=== PATIENT | male | born 1945 | race Caucasian/White ===

== ENCOUNTER 2018-05-28 23:40 | Inpatient (IN) ==
[2018-05-29] MEDS ORDERED: Ondansetron ODT 4 MG TAB.RAPDIS SL PRN (01:35)
[2018-05-29] MEDS ORDERED: GuaiFENesin Liq 200 MG/10 ML UDC PO PRN (01:41)
[2018-05-29] MEDS ORDERED: Acetaminophen 325 MG TABLET PO PRN (01:43)
[2018-05-29] MEDS ORDERED: Dextrose Gel 15 GM/37.5 ML TUBE PO PRN ×2 (01:55)
[2018-05-29] MEDS ORDERED: D5% in Water 1,000 ML IVC PRN (01:55)
[2018-05-29] MEDS ORDERED: *HR* Dextrose 50 % in Water (Syg) 50 ML SYRINGE IVP PRN (01:55)
[2018-05-29] MEDS ORDERED: cloNIDine HCl 0.1 MG TABLET PO PRN (02:04)
[2018-05-29 05:24] LABS: Basophils % 0.4 %; Eosinophils # 0.2 K/mcL (0.0-0.6); Hematocrit 40.5 % (37.5-50.1); Hemoglobin 13.9 g/dL (12.9-16.9); Immature Granulocytes % 0.5 % (0-4); Lymphocytes # 1.4 K/mcL (0.6-4.6); Lymphocytes % 25.1 %; Mean Corpuscular HGB Conc 34.3 g/dL (31.6-35.5); Mean Corpuscular Hemoglobin 30.3 pg (28.0-33.3); Mean Corpuscular Volume 88.2 fL (83.0-100.0); Mean Platelet Volume 11.1 fL (9.4-12.4); Monocytes # 0.5 K/mcL (0.0-1.3); Monocytes % 8.4 %; Neutrophils # 3.5 K/mcL (1.6-8.9); Platelet Count 131 K/mcL (140-400); Red Blood Count 4.59 M/mcL (4.19-5.50); Red Cell Distribution Width 12.6 % (11.5-14.5); Segmented Neutrophils % 61.6 %
[2018-05-29 05:41] LABS: Alanine Aminotransferase 12 Units/L (7-52); Albumin 3.7 g/dL (3.5-5.7); Albumin/Globulin Ratio 1.3 (1.1-2.2); Alkaline Phosphatase 55 Units/L (34-104); Aspartate Amino Transferase 11 Units/L (13-39); BUN/Creatinine Ratio 20 (6-26); Bilirubin,Total 0.6 mg/dL (0.3-1.0); Blood Urea Nitrogen 14 mg/dL (8-23); Calcium 8.7 mg/dL (8.6-10.3); Carbon Dioxide 25 mEq/L (23-29); Chloride 103 mEq/L (98-107); Globulin 2.9 g/dL (2.4-3.5); Glucose 180 mg/dL (70-105); Osmolality,Calculated 285 (280-300); Potassium 3.9 mEq/L (3.5-5.1); Sodium 135 mEq/L (136-145); Total Protein 6.6 g/dL (6.4-8.9); eGFR For Non-African Americans > 60 (> 60)
[2018-05-29] MEDS: *HR* Heparin 5,000 UNIT/ML VIAL SQ SCH ×2 (06:07→18:44)
[2018-05-29] MEDS: *HR* GlipiZIDE 5 MG TABLET PO SCH (08:46)
[2018-05-29] MEDS: Insulin LISPRO 300 UNITS/3 ML VIAL SQ SCH ×4 (08:46→21:19)
[2018-05-29] MEDS: Sennosides 8.6 MG TABLET PO SCH (08:46)
[2018-05-29] MEDS: *HR* Metformin 500 MG TABLET PO SCH ×2 (08:46→18:43)
[2018-05-29] MEDS: Aspirin 81 MG TAB.CHEW PO SCH (08:47)
[2018-05-29] MEDS: Nicotine 21 MG PATCH.TD24 TD SCH (08:47)
--- NOTE | 2018-05-29 10:54 | Internal Med History&Physical ---
Addendum entered and electronically signed by Brendan Willoughby MD 05/29/18 12:28: I have personally performed a face to face evaluation on this patient. I have r eviewed and agree with the care plan. History and Exam by me shows: Patient had a stroke on 05/24/2018. He was seen at [facility] and life flighted to [facility]. There, they put him on blood thinners and gave him medicines for blood pressure and he has done remarkably well. He still has a problem with minimal visual loss at the left as well as unsteadiness and risk of falling. He is transferred here for therapy and to regain his function. He has a event monitor placement that has thus far been free of arrhythmia, to his knowledge. Past medical history was reviewed. He has known hyperlipidemia. He also has been diabetic and on oral medications, only. He denies treatment for hy pertension although they gave him IV Apresoline and metipranolol at [facility]. About 3 years ago, he had prostate cancer and had 40 treatments of radiation without sequela, thereafter. Surgeries include left cataract extraction. He has a 50+ pack year smoking history and smoked until the day of his stroke. He is wearing a nicotine patch for same. We discussed smoking cessation and that he needs to quit. He wears upper full plate dentures. He is suffering for about 3 years from erectile dysfunction. He denies bowel or bladder dysfunction, otherwise. He denies melena or hematochezia. Has taken metformin 850 mg 3 times a day for several years. He states that this frequently gives him diarrhea. Patient has no complaint of chest discomfort, dyspnea, orthopnea, breathing pro blems, palpitations, nausea or vomiting, constipation or diarrhea, other changes in bowel habits, heartburn, difficulty with urination, kidney problems or kidney stones, fevers chills or sweats, rash or itching, seizures, headache or lightheadedness, heat or cold intolerance, blood problems or anemia, or other new complaints, except as mentioned above. Review of systems is otherwise negative. Examination: (Except as mentioned above): General: In no apparent distress, alert and oriented 3. Head: Atraumatic and normocephalic. Eyes: Extraocular muscles are intact, pupils equal round and reactive to light and accommodation. Sclerae anicteric. To confrontation, he admits that there is slight deficit at left upper quadrant but this is poorly characterized. Ears: External ears are normal to inspection and hearing is grossly normal. Nose: Patent without lesion noted. Mouth: No intraoral lesions seen. He has a full upper plate denture as well as lower mandibular teeth which are mostly present but a few central are missing. Neck: Supple with trachea midline. There is no thyromegaly or adenopathy and carotids are 2+ without bruit heard. Respiratory: No use of accessory muscles. Lungs are clear throughout. Normal airflow. Cardiovascular: Regular rate and rhythm without murmur appreciated. Abdomen: Bowel sounds are normal. No hepatosplenomegaly masses or tenderness. Patient is examined upright in chair and this also limits exam. Extremities: No cyanosis clubbing or edema. Neurological: A and O 3. Cranial nerves II through XII are intact. No focal deficits and no abnormal movements or postures. He has excellent dorsiflexion. Left upper extremity grasp is symmetrical with the right. Skin: Warm and non-diaphoretic with no lesions noted. Breasts, pelvic and rectal: Not examined. He will be assessed by therapy for stability and training and his safety precautions. Because he has elevated blood pressure, will begin low-dose losartan and follow. He will also be treated with when necessary clonidine. So that he has maximum benefit from Glucophage, this will be changed to 1000 mg twice a day. He will be treated with sliding scale insulin, as well. Original Note: Date of Encounter: 05/29/18 Time of Encounter: 10:50 Assessment and Plan (1) CVA (cerebral vascular accident) Current visit: Yes Status: Acute PT, OT and ST to eval and treat. Will follow progress. Follow up with neuro logist as scheduled. No neurological deficits at this time. Continue simvastatin. MRI showed a left cerebellar stroke with medulla extension. 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 Continue to monitor fingerstick blood sugar. Last hemoglobin A-1 C7 .8. Qualifiers: Diabetes mellitus diamond sander insulin use: without diamond sander use Diabetes mellitus complication status: without complication Qualified Code(s): E11.9 - Type 2 diabetes mellitus without complications (3) Hyperlipemia Current visit: Yes Status: Acute Continue simvastatin. Qualifiers: Hyperlipidemia type: unspecified Qualified Code(s): E78.5 - Hyperlipidemia, unspecified Internal Medicine - H&P: HPI Admitted From: Hospital to Hospital Transfer Plans for Post Hospital Care: Home History of present illness: Mr. Andrew is a 72 year old male admitted to rehab status post CVA. States he was watching TV on to when he had a sudden onset of dizziness and leaning to his left side. He was admitted to [facility] with an MRI showing a left cerebellar stroke with left medulla extension. hgb A1C 7.8 past medical history includes diabetes type II and hyperlipidemia is a one pack per day smoker. Patient denies any new neurological symptoms, denies change in vision, denies fever, chills, nausea vomiting or diarrhea. Denies shortness of breath or chest pain. 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 - Social History Smoking Status: Current every day smoker Packs per day: 1 Smokeless Tobacco Status: No Alcohol use: none Drug use: none - Family History Father Living Status: Age at : 90 Cause of : Stroke Mother Living Status: Internal Medicine - H&P: Meds glipiZIDE [Glucotrol] 5 mg PO 0800 07/04/16 [History] metFORMIN [Glucophage] 850 mg PO TID 07/04/16 [History] Simvastatin [Zocor] 20 mg PO DAILY 07/17/17 [History] Allergy/AdvReac Type Severity Reaction Status Date / Time No Known Allergies Allergy Verified 07/17/17 14:58 All Systems PM: A 10-system review of systems was performed and is negative for pertinent find ings except as documented above in the HPI. - Constitutional Constitutional: no chills, no fever(s), no night sweats - EENT Eyes: no change in vision, no discharge, no pain, no photophobia Ears: no ear discharge, no ear pain, no tinnitus Nose, mouth and throat: no dysphagia, no nasal discharge, no neck pain, no sore throat - Cardiovascular Cardiovascular ROS IM: no chest pain, no diaphoresis, no dyspnea, no lightheadedness, no palpitations, no syncope - Respiratory Respiratory: no cough, no dyspnea, no wheezing, no excessive phlegm production - Gastrointestinal Gastrointestinal: no abdominal pain, no diarrhea, no hematemesis, no hematochezia, no melena, no nausea, no vomiting - Musculoskeletal Musculoskeletal ROS IM: no numbness, no tingling - Integumentary Integumentary IM: no rash, no unusual bruising - Neurological Neurological ROS: no confusion, no convulsions, no focal weakness, no numbness, no tingling, no tremor(s) - Hematologic/Lymphatic Hematologic/Lymphatic: no easy bruising - Constitutional Vitals: Temp Pulse Resp BP Pulse Ox 98.0 F 62 16 151/81 95 05/29/18 06:55 05/29/18 06:55 05/29/18 06:55 05/29/18 06:55 05/29/18 06:55 General appearance: Present: cooperative, A&O X 3, pleasant, no acute distress, answers questions appropriately - Head Head exam: Present: atraumatic, normocephalic - Eye Eye exam: Present: PERRL, conjuntiva pink, sclera anicteric Pupils: Present: PERRL - Neck Neck exam general surgery: Present: supple, trachea midline. Absent: lymphadenopathy - Respiratory Respiratory exam: Present: CTAB. Absent: accessory muscle use, rales, rhonchi, wheezes - Cardiovascular Cardiovascular exam: Present: RRR, +S1, +S2. Absent: diastolic murmur, gallop, rubs, systolic murmur - GI/Abdominal GI/Abdominal exam: Present: normal bowel sounds, soft, no peritoneal signs. Absent: distended, tenderness - Extremities Exam Extremities exam: Present: warm, radial pulses palpable and symmetrical. Absent: calf tenderness, cyanotic, pedal edema Additional comments: Strength, 5\5, with all for extremities. Has a slightly into the left when sitt ing upright - Neurological Exam Neurological exam: Present: CN II-XII intact, oriented X3, no focal deficits. Absent: pronater drift, facial droop, speech deficit - Skin Skin exam: Present: dry, intact Internal Med - H&P Results - Labs CBC & Chem 7: 05/29/18 05:11 05/29/18 05:11 Labs: Short CBC 05/29/18 Range/Units 05:11 WBC 5.7 (4.3-11.1) K/mcL Hgb 13.9 (12.9-16.9) g/dL Hct 40.5 (37.5-50.1) % Plt Count 131 L (140-400) K/mcL Neutrophils # 3.5 (1.6-8.9) K/mcL BMP 05/29/18 05:11 Sodium 135 L Potassium 3.9 Chloride 103 Carbon Dioxide 25 BUN 14 Creatinine 0.70 Glucose 180 H Calcium 8.7 Liver Function 05/29/18 Range/Units 05:11 Total Bilirubin 0.6 (0.3-1.0) mg/dL AST 11 L (13-39) Units/L ALT 12 (7-52) Units/L Alkaline Phosphatase 55 (34-104) Units/L Albumin 3.7 (3.5-5.7) g/dL
[2018-05-29] MEDS: Gabapentin 300 MG CAPSULE PO SCH (21:22)
[2018-05-30] MEDS: *HR* Heparin 5,000 UNIT/ML VIAL SQ SCH ×2 (05:45→17:18)
[2018-05-30] MEDS: Nicotine 21 MG PATCH.TD24 TD SCH (09:56)
[2018-05-30] MEDS: Aspirin 81 MG TAB.CHEW PO SCH (09:57)
[2018-05-30] MEDS: *HR* GlipiZIDE 5 MG TABLET PO SCH (09:57)
[2018-05-30] MEDS: *HR* Metformin 500 MG TABLET PO SCH ×2 (09:57→17:18)
[2018-05-30] MEDS: Sennosides 8.6 MG TABLET PO SCH (09:57)
[2018-05-30] MEDS: Insulin LISPRO 300 UNITS/3 ML VIAL SQ SCH ×4 (09:57→20:19)
--- NOTE | 2018-05-30 14:02 | Internal Med Progress Note ---
Date of Encounter: 05/30/18 Time of Encounter: 11:15 - Assessment and plan (1) CVA (cerebral vascular accident) Current Visit: Yes Status: Acute Assessment and plan: We will continue therapies and support as planned. 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 Qualifiers: Diabetes mellitus terminal operations supervisor insulin use: without shelter use Diabetes mellitus complication status: without complication Qualified Code(s): E11.9 - Type 2 diabetes mellitus without complications (3) Hyperlipemia Current Visit: Yes Status: Acute Assessment and plan: On statin medication for same. Qualifiers: Hyperlipidemia type: unspecified Qualified Code(s): E78.5 - Hyperlipidemia, unspecified (4) Tobacco abuse Current Visit: Yes Status: Acute Assessment and plan: On nicotine patch for same. - Subjective Interval history: Patient is doing well. He has no complaints. He thinks that his unsteadiness was improved during therapy, this morning. Patient has no complaint of chest discomfort, dyspnea, orthopnea, palpitations, nausea or vomiting, constipation or diarrhea, other changes in bowel habits, difficulty with urination, rash or itching, or other new complaints, except as mentioned above. Review of systems is otherwise negative. I discussed management of her care with nursing staff. - Constitutional Vitals: Temp Pulse Resp BP Pulse Ox 98.3 F 67 16 107/71 97 05/30/18 08:20 05/30/18 08:20 05/30/18 08:20 05/30/18 08:20 05/30/18 08:20 Exam: Examination: (Except as mentioned above): General: In no apparent distress. Alert and oriented 3. Nondiaphoretic. Head: Atraumatic and normocephalic. Respiratory: No use of accessory muscles. Lungs are clear throughout. Normal airflow. Cardiovascular: Regular rate and rhythm without murmur appreciated. Abdomen: Bowel sounds are normal. No hepatosplenomegaly mass or tenderness appreciated. Obese and therefore difficult to palpate deeply. Extremities: No cyanosis clubbing or edema. Skin: Warm and non-diaphoretic with no new lesions noted. Strength remains good and there are no gross neurologic abnormalities. Internal Medicine: Result - Labs CBC & Chem 7: 05/29/18 05:11 05/29/18 05:11 Consult Discharge Plan - Plan [facility]errals: [facility] [Primary Care Provider[facility] -
[2018-05-30] MEDS: Gabapentin 300 MG CAPSULE PO SCH (20:18)
[2018-05-30] MEDS: Mag Hydrox/Al Hydrox/Simeth 30 ML UDC PO PRN (22:41)
[2018-05-31] MEDS: *HR* Heparin 5,000 UNIT/ML VIAL SQ SCH ×2 (05:24→17:01)
[2018-05-31] MEDS: Insulin LISPRO 300 UNITS/3 ML VIAL SQ SCH ×4 (07:17→20:18)
[2018-05-31] MEDS: *HR* Metformin 500 MG TABLET PO SCH ×2 (08:01→17:01)
[2018-05-31] MEDS: Aspirin 81 MG TAB.CHEW PO SCH (08:01)
[2018-05-31] MEDS: *HR* GlipiZIDE 5 MG TABLET PO SCH (08:01)
[2018-05-31] MEDS: Nicotine 21 MG PATCH.TD24 TD SCH (08:02)
[2018-05-31] MEDS: Sennosides 8.6 MG TABLET PO SCH (08:02)
[2018-05-31] MEDS: Mag Hydrox/Al Hydrox/Simeth 30 ML UDC PO PRN (10:52)
--- NOTE | 2018-05-31 15:11 | Internal Med Progress Note ---
Date of Encounter: 05/31/18 Time of Encounter: 15:09 - Assessment and plan (1) CVA (cerebral vascular accident) Current Visit: Yes Status: Acute Assessment and plan: We will continue therapies and support as planned. 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 Qualifiers: Diabetes mellitus intermediate insulin use: without nut sifter use Diabetes mellitus complication status: without complication Qualified Code(s): E11.9 - Type 2 diabetes mellitus without complications (3) Hyperlipemia Current Visit: Yes Status: Acute Assessment and plan: No changes in we will continue statin. Qualifiers: Hyperlipidemia type: unspecified Qualified Code(s): E78.5 - Hyperlipidemia, unspecified (4) Tobacco abuse Current Visit: Yes Status: Acute Assessment and plan: On nicotine patch. - Subjective Interval history: Patient has significant dyspepsia. He states this is better with Maalox. We discussed the use of a PPI. He denies other problems. Patient has no complaint of chest discomfort, dyspnea, orthopnea, palpitations, nausea or vomiting, constipation or diarrhea, other changes in bowel habits, difficulty with urination, rash or itching, or other new complaints, except as mentioned above. Review of systems is otherwise negative. I discussed management of her care with nursing staff. - Constitutional Vitals: Temp Pulse Resp BP Pulse Ox 98.1 F 65 16 116/70 96 05/31/18 06:56 05/31/18 06:56 05/31/18 06:56 05/31/18 06:56 05/31/18 06:56 Exam: Examination: (Except as mentioned above): General: In no apparent distress. Alert and oriented 3. Nondiaphoretic. Head: Atraumatic and normocephalic. Respiratory: No use of accessory muscles. Lungs are clear throughout. Normal airflow. Cardiovascular: Regular rate and rhythm without murmur appreciated. Abdomen: Bowel sounds are normal. No hepatosplenomegaly mass or tenderness appreciated. Obese and therefore difficult to palpate deeply. Extremities: No cyanosis clubbing or edema. Skin: Warm and non-diaphoretic with no new lesions noted. Internal Medicine: Result - Labs CBC & Chem 7: 05/29/18 05:11 05/29/18 05:11 Consult Discharge Plan - Plan [facility]errals: [facility] [Primary Care Provider] -
[2018-05-31] MEDS: Gabapentin 300 MG CAPSULE PO SCH (22:04)
[2018-06-01] MEDS: *HR* Heparin 5,000 UNIT/ML VIAL SQ SCH ×2 (05:49→18:16)
[2018-06-01 05:50] LABS: Basophils % 0.3 %; Eosinophils # 0.2 K/mcL (0.0-0.6); Eosinophils % 3.2 %; Hematocrit 42.7 % (37.5-50.1); Hemoglobin 14.3 g/dL (12.9-16.9); Immature Granulocytes % 0.6 % (0-4); Lymphocytes # 1.6 K/mcL (0.6-4.6); Lymphocytes % 25.3 %; Mean Corpuscular HGB Conc 33.5 g/dL (31.6-35.5); Mean Corpuscular Volume 89.5 fL (83.0-100.0); Mean Platelet Volume 11.1 fL (9.4-12.4); Monocytes # 0.6 K/mcL (0.0-1.3); Monocytes % 9.8 %; Neutrophils # 3.8 K/mcL (1.6-8.9); Platelet Count 150 K/mcL (140-400); Red Blood Count 4.77 M/mcL (4.19-5.50); Red Cell Distribution Width 12.6 % (11.5-14.5); Segmented Neutrophils % 60.8 %
[2018-06-01 06:07] LABS: Alanine Aminotransferase 14 Units/L (7-52); Albumin 3.9 g/dL (3.5-5.7); Albumin/Globulin Ratio 1.4 (1.1-2.2); Alkaline Phosphatase 56 Units/L (34-104); Aspartate Amino Transferase 13 Units/L (13-39); BUN/Creatinine Ratio 17 (6-26); Bilirubin,Total 0.8 mg/dL (0.3-1.0); Blood Urea Nitrogen 16 mg/dL (8-23); Carbon Dioxide 29 mEq/L (23-29); Chloride 100 mEq/L (98-107); Globulin 2.7 g/dL (2.4-3.5); Glucose 136 mg/dL (70-105); Osmolality,Calculated 279 (280-300); Potassium 4.3 mEq/L (3.5-5.1); Sodium 133 mEq/L (136-145); Total Protein 6.6 g/dL (6.4-8.9); eGFR For Non-African Americans > 60 (> 60)
[2018-06-01] MEDS: Insulin LISPRO 300 UNITS/3 ML VIAL SQ SCH ×4 (07:30→20:31)
[2018-06-01] MEDS: *HR* GlipiZIDE 5 MG TABLET PO SCH (07:31)
[2018-06-01] MEDS: Aspirin 81 MG TAB.CHEW PO SCH (07:48)
[2018-06-01] MEDS: Sennosides 8.6 MG TABLET PO SCH (07:48)
[2018-06-01] MEDS: Nicotine 21 MG PATCH.TD24 TD SCH (07:49)
[2018-06-01] MEDS: *HR* Metformin 500 MG TABLET PO SCH ×2 (07:49→17:14)
--- NOTE | 2018-06-01 10:11 | Internal Med Progress Note ---
Addendum entered and electronically signed by Brendan Willoughby MD 06/01/18 12:13: I have personally performed a face to face evaluation on this patient. I have r eviewed and agree with the care plan. History and Exam by me shows: Patient is not having any nausea this morning. On further questioning, he says that he felt like he had multiple cups yesterday and the need to burp and then threw up. He does not really have much nausea. I told him that we would hope that the PPI would help his symptoms and he should let us know. He denies any abdominal pain or change in bowel habits and he is still unsteady with gait but otherwise feels normal. Discussed care with other providers and/or nursing. Patient has no complaint of chest discomfort, dyspnea, orthopnea, palpitations, nausea or vomiting, constipation or diarrhea, other changes in bowel habits, difficulty with urination, rash or itching, or other new complaints, except as mentioned above. Review of systems is otherwise negative. Examination: (Except as mentioned above): General: In no apparent distress. Alert and oriented 3. Nondiaphoretic. Head: Atraumatic and normocephalic. Respiratory: No use of accessory muscles. Lungs are clear throughout. Normal airflow. Cardiovascular: Regular rate and rhythm without murmur appreciated. Abdomen: Bowel sounds are normal. No hepatosplenomegaly mass or tenderness appreciated. Obese and therefore difficult to palpate deeply. Extremities: No cyanosis clubbing or edema. Skin: Warm and non-diaphoretic with no new lesions noted. Original Note: Date of Encounter: 06/01/18 Time of Encounter: 10:09 - Assessment and plan (1) CVA (cerebral vascular accident) Current Visit: Yes Status: Inactive Assessment and plan: Continue PT, OT and ST. Will monitor for improvement. No new neurological deficits. Follow up with neurologist as scheduled. 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 Monitor fingerstick blood sugar. Qualifiers: Diabetes mellitus custodial insulin use: without custodial use Diabetes mellitus complication status: without complication Qualified Code(s): E11.9 - Type 2 diabetes mellitus without complications (3) Hyperlipemia Current Visit: Yes Status: Acute Assessment and plan: Continue simvastatin. Qualifiers: Hyperlipidemia type: unspecified Qualified Code(s): E78.5 - Hyperlipidemia, unspecified - Time Spent With Patient less than 15 minutes - Subjective Interval history: Patient participating well with therapy. Ambulating with Walker. States bowels are moving as normal. Maintaining appetite and hydration. Denies any new neurological deficits. Continues to lean to the left. - Constitutional Vitals: Temp Pulse Resp BP Pulse Ox 98.1 F 60 16 112/70 97 06/01/18 06:25 06/01/18 06:25 06/01/18 06:25 06/01/18 06:25 06/01/18 06:25 General appearance: Present: cooperative, A&O X 3, pleasant, no acute distress, answers questions appropriately - Head Head exam: Present: atraumatic, normocephalic - Eye Eye exam: Present: PERRL, conjuntiva pink, sclera anicteric Pupils: Present: PERRL - Neck Neck exam general surgery: Present: supple, trachea midline. Absent: lymphadenopathy - Respiratory Respiratory exam: Present: CTAB. Absent: accessory muscle use, rales, rhonchi, wheezes - Cardiovascular Cardiovascular exam: Present: RRR, +S1, +S2. Absent: diastolic murmur, gallop, rubs, systolic murmur - GI/Abdominal GI/Abdominal exam: Present: normal bowel sounds, soft, no peritoneal signs. Absent: distended, tenderness - Extremities Exam Extremities exam: Present: warm, radial pulses palpable and symmetrical. Absent: calf tenderness, cyanotic, pedal edema - Neurological Exam Neurological exam: Present: CN II-XII intact, oriented X3, no focal deficits. Absent: pronater drift, facial droop, speech deficit - Skin Skin exam: Present: dry, intact Internal Medicine: Result - Labs CBC & Chem 7: 06/01/18 05:40 06/01/18 05:40 Labs: Short CBC 06/01/18 Range/Units 05:40 WBC 6.3 (4.3-11.1) K/mcL Hgb 14.3 (12.9-16.9) g/dL Hct 42.7 (37.5-50.1) % Plt Count 150 (140-400) K/mcL Neutrophils # 3.8 (1.6-8.9) K/mcL BMP 06/01/18 05:40 Sodium 133 L Potassium 4.3 Chloride 100 Carbon Dioxide 29 BUN 16 Creatinine 0.92 Glucose 136 H Calcium 9.0 Liver Function 06/01/18 Range/Units 05:40 Total Bilirubin 0.8 (0.3-1.0) mg/dL AST 13 (13-39) Units/L ALT 14 (7-52) Units/L Alkaline Phosphatase 56 (34-104) Units/L Albumin 3.9 (3.5-5.7) g/dL Consult Discharge Plan - Plan [facility]errals: [facility] [Primary Care Provider] -
[2018-06-01] MEDS: Gabapentin 300 MG CAPSULE PO SCH (20:30)
[2018-06-02] MEDS: *HR* Heparin 5,000 UNIT/ML VIAL SQ SCH ×2 (05:32→17:40)
[2018-06-02] MEDS: Insulin LISPRO 300 UNITS/3 ML VIAL SQ SCH ×4 (07:32→22:22)
[2018-06-02] MEDS: *HR* Metformin 500 MG TABLET PO SCH ×2 (09:04→17:06)
[2018-06-02] MEDS: Aspirin 81 MG TAB.CHEW PO SCH (09:05)
[2018-06-02] MEDS: Nicotine 21 MG PATCH.TD24 TD SCH (09:05)
[2018-06-02] MEDS: Sennosides 8.6 MG TABLET PO SCH (09:05)
[2018-06-02] MEDS: *HR* GlipiZIDE 5 MG TABLET PO SCH (09:05)
--- NOTE | 2018-06-02 10:07 | Internal Med Progress Note ---
Addendum entered and electronically signed by Brendan Willoughby MD 06/02/18 13:01: I have personally performed a face to face evaluation on this patient. I have r eviewed and agree with the care plan. History and Exam by me shows: Patient states that he is feeling well. He occasionally has hiccups but no other nausea or feeling the urge to vomit. He is moving his bowels and has no problems otherwise. He feels like his unsteadiness is improving. Discussed care with other providers and/or nursing. Patient has no complaint of chest discomfort, dyspnea, orthopnea, palpitations, nausea or vomiting, constipation or diarrhea, other changes in bowel habits, difficulty with urination, rash or itching, or other new complaints, except as mentioned above. Review of systems is otherwise negative. Examination: (Except as mentioned above): General: In no apparent distress. Alert and oriented 3. Nondiaphoretic. Head: Atraumatic and normocephalic. Respiratory: No use of accessory muscles. Lungs are clear throughout. Normal airflow. Cardiovascular: Regular rate and rhythm without murmur appreciated. Abdomen: Bowel sounds are normal. No hepatosplenomegaly mass or tenderness appreciated. Obese and therefore difficult to palpate deeply. Patient is examined upright at bedside and this also limits exam. Extremities: No cyanosis clubbing or edema. Skin: Warm and non-diaphoretic with no new lesions noted. Original Note: Date of Encounter: 06/02/18 Time of Encounter: 10:06 - Assessment and plan (1) CVA (cerebral vascular accident) Current Visit: Yes Status: Inactive Assessment and plan: Continue PT, OT and ST. Will monitor for improvement. No new neurological deficits. Follow up with neurologist as scheduled. 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 Monitor fingerstick blood sugar. Qualifiers: Diabetes mellitus retirement insulin use: without health promoter use Diabetes mellitus complication status: without complication Qualified Code(s): E11.9 - Type 2 diabetes mellitus without complications (3) Hyperlipemia Current Visit: Yes Status: Acute Assessment and plan: Continue simvastatin. Qualifiers: Hyperlipidemia type: unspecified Qualified Code(s): E78.5 - Hyperlipidemia, unspecified - Time Spent With Patient less than 15 minutes - Subjective Interval history: Patient participating well with therapy. Ambulating with Walker with men assist to transfer. Patient continues to have impulsive and quick movements.. States bowels are moving as normal. Maintaining appetite and hydration. Denies any new neurological deficits. Continues to lean to the left. - Constitutional Vitals: Temp Pulse Resp BP Pulse Ox 97.9 F 55 16 110/69 97 06/02/18 06:43 06/02/18 06:43 06/02/18 06:43 06/02/18 06:43 06/02/18 06:43 General appearance: Present: cooperative, A&O X 3, pleasant, no acute distress, answers questions appropriately - Head Head exam: Present: atraumatic, normocephalic - Eye Eye exam: Present: PERRL, conjuntiva pink, sclera anicteric Pupils: Present: PERRL - Neck Neck exam general surgery: Present: supple, trachea midline. Absent: lymphadenopathy - Respiratory Respiratory exam: Present: CTAB. Absent: accessory muscle use, rales, rhonchi, wheezes - Cardiovascular Cardiovascular exam: Present: RRR, +S1, +S2. Absent: diastolic murmur, gallop, rubs, systolic murmur - GI/Abdominal GI/Abdominal exam: Present: normal bowel sounds, soft, no peritoneal signs. Absent: distended, tenderness - Extremities Exam Extremities exam: Present: warm, radial pulses palpable and symmetrical. Absent: calf tenderness, cyanotic, pedal edema - Neurological Exam Neurological exam: Present: CN II-XII intact, oriented X3, no focal deficits. Absent: pronater drift, facial droop, speech deficit - Skin Skin exam: Present: dry, intact Internal Medicine: Result - Labs CBC & Chem 7: 06/01/18 05:40 06/01/18 05:40 Consult Discharge Plan - Plan [facility]errals: [facility] [Primary Care Provider] -
[2018-06-02] MEDS: Gabapentin 300 MG CAPSULE PO SCH (22:24)
[2018-06-03] MEDS: *HR* Heparin 5,000 UNIT/ML VIAL SQ SCH ×2 (06:41→16:46)
[2018-06-03] MEDS: Insulin LISPRO 300 UNITS/3 ML VIAL SQ SCH ×4 (07:33→20:42)
[2018-06-03] MEDS: Nicotine 21 MG PATCH.TD24 TD SCH (08:48)
[2018-06-03] MEDS: Aspirin 81 MG TAB.CHEW PO SCH (08:49)
[2018-06-03] MEDS: *HR* Metformin 500 MG TABLET PO SCH ×2 (08:49→16:46)
[2018-06-03] MEDS: *HR* GlipiZIDE 5 MG TABLET PO SCH (08:50)
[2018-06-03] MEDS: Sennosides 8.6 MG TABLET PO SCH (08:50)
--- NOTE | 2018-06-03 11:50 | Internal Med Progress Note ---
Addendum entered and electronically signed by Brendan Willoughby MD 06/03/18 13:42: I have personally performed a face to face evaluation on this patient. I have r eviewed and agree with the care plan. History and Exam by me shows: Patient is doing well without complaint. He still notes that he has persistent unsteadiness. He is frustrated because he cannot do certain tasks with therapy Discussed care with other providers and/or nursing. Patient has no complaint of chest discomfort, dyspnea, orthopnea, palpitations, nausea or vomiting, constipation or diarrhea, other changes in bowel habits, difficulty with urination, rash or itching, or other new complaints, except as mentioned above. Review of systems is otherwise negative. Examination: (Except as mentioned above): General: In no apparent distress. Alert and oriented 3. Nondiaphoretic. Head: Atraumatic and normocephalic. Respiratory: No use of accessory muscles. Lungs are clear throughout. Normal airflow. Cardiovascular: Regular rate and rhythm without murmur appreciated. Abdomen: Bowel sounds are normal. No hepatosplenomegaly mass or tenderness appreciated. Patient is examined upright in chair and this also limits exam. Extremities: No cyanosis clubbing or edema. Skin: Warm and non-diaphoretic with no new lesions noted. Original Note: Date of Encounter: 06/03/18 Time of Encounter: 11:49 - Assessment and plan (1) CVA (cerebral vascular accident) Current Visit: Yes Status: Acute Assessment and plan: Patient appears relaxed. No acute neurological deficits noted on exam. Patient originally had slight left hemiparesis but on exam appeared to have equal str ength to all extremities. Patient dissipated physical therapy and progressing well. We will continue with current plan of care Qualifiers: CVA mechanism: unspecified Qualified Code(s): I63.9 - Cerebral infarction, unspecified (2) Diabetes type 2, controlled Current Visit: Yes Status: Acute Assessment and plan: No acute issues. Patient's glucose been well-controlled with most readings less than 170. We will continue on current medication regimen. Qualifiers: Diabetes mellitus brickmason contractor insulin use: without brickmason contractor use Diabetes mellitus complication status: without complication Qualified Code(s): E11.9 - Type 2 diabetes mellitus without complications - Time Spent With Patient less than 15 minutes - Subjective Interval history: Patient appears relaxed and currently denies any discomforts or dyspnea. Denies any acute neurological deficits and states that he feels that his strength has improved to his left ext. - Constitutional Vitals: Temp Pulse Resp BP Pulse Ox 98.6 F 61 16 121/62 97 06/03/18 06:00 06/03/18 06:00 06/03/18 06:00 06/03/18 06:00 06/03/18 06:00 General appearance: Present: cooperative, A&O X 3, pleasant, no acute distress, answers questions appropriately - Head Head exam: Present: atraumatic, normocephalic - Eye Eye exam: Present: PERRL, conjuntiva pink, sclera anicteric Pupils: Present: PERRL - Neck Neck exam general surgery: Present: supple, trachea midline. Absent: lymphadenopathy - Respiratory Respiratory exam: Present: CTAB. Absent: accessory muscle use, rales, rhonchi, wheezes - Cardiovascular Cardiovascular exam: Present: RRR, +S1, +S2. Absent: diastolic murmur, gallop, rubs, systolic murmur - GI/Abdominal GI/Abdominal exam: Present: normal bowel sounds, soft, no peritoneal signs. Absent: distended, tenderness - Extremities Exam Extremities exam: Present: warm, radial pulses palpable and symmetrical. Absent: calf tenderness, cyanotic, pedal edema - Neurological Exam Neurological exam: Present: CN II-XII intact, oriented X3, no focal deficits. Absent: pronater drift, facial droop, speech deficit - Skin Skin exam: Present: dry, intact Internal Medicine: Result - Labs CBC & Chem 7: 06/01/18 05:40 06/01/18 05:40 Consult Discharge Plan - Plan [facility] [Primary Care Provider] -
--- NOTE | 2018-06-03 14:30 | Psychological Evaluation ---
Date of Encounter: 06/03/18 Time of Encounter: 09:00 History of Present Illness History of present illness: Mr. Andrew is a 72 year old male. Patient had a stroke on 05/24/2018. He was seen at [facility] and life flighted to [facility]. There, they put him on blood thinners and gave him medicines for blood pressure and he has done remarkably well. He still has a problem with minimal visual loss at the left as well as unsteadiness and risk of falling. He is transferred here for therapy and to regain his function. Past Medical History - Psychiatric History Psychiatric history: Reports: no psych history Additional Psychiatric History: Denies SI Home Medications and Allergies glipiZIDE [Glucotrol] 5 mg PO 0800 07/04/16 [History] metFORMIN [Glucophage] 850 mg PO TID 07/04/16 [History] Simvastatin [Zocor] 20 mg PO DAILY 07/17/17 [History] Allergy/AdvReac Type Severity Reaction Status Date / Time No Known Allergies Allergy Verified 07/17/17 14:58 Social History - Social History Social History: 35 years to second . 2 adult children and 2 step children. - 4 years [employer]. works 40 hours /week [employer]. Goal is to return to work. Highest education 12 years. 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 manages finances. - Tobacco Use Smoking Status: Current every day smoker - Alcohol Use Alcohol Use: none - Drug Use Drug Use: none Cognitive/Emotional Assessment - Cognitive Ability Abstract Thinking Ability: No Deficits Noted Attention Span Ability: Capable of Focused Attention, Capable of Sustained Attention Language Function Ability: No Deficits Noted Verbal Communication Ability: Conversational Style Level of Alertness: Alert Memory Description: Recent Intact, Remote Intact Orientation: Person, Place, Time Ability to Follow Directions: Good Speech Pattern: Normal rate Thought Process: Logical Calculations: Able to spell WORLD backw Immediate Recall: Recalls 3 objects/words - Emotional Status Mood Description: Depressed Affect Description: Constricted Coping Ability: Verbalizes positive coping skills Assessment & Plan - Diagnosis (1) Depressive disorder due to another medical condition with depressive features (2) CVA (cerebral vascular accident) Qualifiers: CVA mechanism: unspecified Qualified Code(s): I63.9 - Cerebral infarction, unspecified - Prognosis Prognosis: Good Procedures - Participants Therapy Participant: Patient - Session Time Session Start Time: 09:00 Session Stop Time: 09:30
[2018-06-03] MEDS: Gabapentin 300 MG CAPSULE PO SCH (20:27)
[2018-06-04] MEDS: *HR* Heparin 5,000 UNIT/ML VIAL SQ SCH ×2 (05:58→17:16)
[2018-06-04] MEDS: Insulin LISPRO 300 UNITS/3 ML VIAL SQ SCH ×4 (08:48→20:52)
[2018-06-04] MEDS: *HR* Metformin 500 MG TABLET PO SCH ×2 (08:49→17:15)
[2018-06-04] MEDS: Nicotine 21 MG PATCH.TD24 TD SCH (08:49)
[2018-06-04] MEDS: *HR* GlipiZIDE 5 MG TABLET PO SCH (08:50)
[2018-06-04] MEDS: Aspirin 81 MG TAB.CHEW PO SCH (08:50)
[2018-06-04] MEDS: Sennosides 8.6 MG TABLET PO SCH (08:55)
--- NOTE | 2018-06-04 14:43 | Internal Med Progress Note ---
Date of Encounter: 06/04/18 Time of Encounter: 13:15 - Assessment and plan (1) CVA (cerebral vascular accident) Current Visit: Yes Status: Inactive Assessment and plan: We will continue therapies as planned. Discharge is to be determined. 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 Qualifiers: Diabetes mellitus half-way insulin use: without intermediate school teacher use Diabetes m ellitus complication status: without complication Qualified Code(s): E11.9 - Type 2 diabetes mellitus without complications (3) Hyperlipemia Current Visit: Yes Status: Acute Assessment and plan: We will continue his current regimen. Qualifiers: Hyperlipidemia type: unspecified Qualified Code(s): E78.5 - Hyperlipidemia, unspecified (4) Tobacco abuse Current Visit: Yes Status: Acute Assessment and plan: He seems to be doing well but we will need to encourage him to stop smoking upon discharge. - Subjective Interval history: Patient is without complaint. He has no dyspepsia or feeling like he needs to have hiccups which make him throw up. Otherwise, no acute problems and states that his unsteadiness is getting better with therapy. Patient has no complaint of chest discomfort, dyspnea, orthopnea, palpitations, nausea or vomiting, constipation or diarrhea, other changes in bowel habits, difficulty with urination, rash or itching, or other new complaints, except as mentioned above. Review of systems is otherwise negative. I discussed management of her care with nursing staff. - Constitutional Vitals: Temp Pulse Resp BP Pulse Ox 98.4 F 62 18 117/71 97 06/04/18 08:35 06/04/18 08:35 06/04/18 08:35 06/04/18 08:35 06/04/18 08:35 Exam: Examination: (Except as mentioned above): General: In no apparent distress. Alert and oriented 3. Nondiaphoretic. Head: Atraumatic and normocephalic. Respiratory: No use of accessory muscles. Lungs are clear throughout. Normal airflow. Cardiovascular: Regular rate and rhythm without murmur appreciated. Abdomen: Bowel sounds are normal. No hepatosplenomegaly mass or tenderness appreciated. Extremities: No cyanosis clubbing or edema. Skin: Warm and non-diaphoretic with no new lesions noted. Internal Medicine: Result - Labs CBC & Chem 7: 06/01/18 05:40 06/01/18 05:40 Consult Discharge Plan - Plan [facility]errals: [facility] [Primary Care Provider] -
[2018-06-04] MEDS: Gabapentin 300 MG CAPSULE PO SCH (20:52)
[2018-06-05] MEDS: *HR* Heparin 5,000 UNIT/ML VIAL SQ SCH ×2 (05:02→17:05)
[2018-06-05] MEDS: Insulin LISPRO 300 UNITS/3 ML VIAL SQ SCH ×4 (08:10→20:09)
[2018-06-05] MEDS: Sennosides 8.6 MG TABLET PO SCH (08:11)
[2018-06-05] MEDS: *HR* Metformin 500 MG TABLET PO SCH ×2 (08:11→17:04)
[2018-06-05] MEDS: Nicotine 21 MG PATCH.TD24 TD SCH (08:11)
[2018-06-05] MEDS: Aspirin 81 MG TAB.CHEW PO SCH (08:11)
[2018-06-05] MEDS: *HR* GlipiZIDE 5 MG TABLET PO SCH (08:11)
--- NOTE | 2018-06-05 10:08 | Internal Med Progress Note ---
Date of Encounter: 06/05/18 Time of Encounter: 10:06 - Assessment and plan (1) CVA (cerebral vascular accident) Current Visit: Yes Status: Acute Assessment and plan: Patient appears relaxed. No acute neurological deficits noted on exam. No focal deficits noted on exam. Patient participating in physical therapy and progressing well. We will continue with current plan of care Qualifiers: CVA mechanism: unspecified Qualified Code(s): I63.9 - Cerebral infarction, unspecified (2) Diabetes type 2, controlled Current Visit: Yes Status: Acute Assessment and plan: No acute issues. Patient's glucose been well-controlled with most readings less than 170. We will continue on current medication regimen. Qualifiers: Diabetes mellitus termination clerk insulin use: without alf use Diabetes mellitus complication status: without complication Qualified Code(s): E11.9 - Type 2 diabetes mellitus without complications - Time Spent With Patient less than 15 minutes - Subjective Interval history: Patient appears relaxed and currently denies any discomforts or dyspnea. Denies any acute neurological deficits and states that he feels that his strength has improved to his left ext. - Constitutional Vitals: Temp Pulse Resp BP Pulse Ox 98.5 F 58 18 118/73 100 06/05/18 07:28 06/05/18 07:28 06/05/18 07:28 06/05/18 07:28 06/05/18 07:28 General appearance: Present: cooperative, A&O X 3, pleasant, no acute distress, answers questions appropriately - Head Head exam: Present: atraumatic, normocephalic - Eye Eye exam: Present: PERRL, conjuntiva pink, sclera anicteric Pupils: Present: PERRL - Neck Neck exam general surgery: Present: supple, trachea midline. Absent: lymphadenopathy - Respiratory Respiratory exam: Present: CTAB. Absent: accessory muscle use, rales, rhonchi, wheezes - Cardiovascular Cardiovascular exam: Present: RRR, +S1, +S2. Absent: diastolic murmur, gallop, rubs, systolic murmur - GI/Abdominal GI/Abdominal exam: Present: normal bowel sounds, soft, no peritoneal signs. Absent: distended, tenderness - Extremities Exam Extremities exam: Present: warm, radial pulses palpable and symmetrical. Absent: calf tenderness, cyanotic, pedal edema - Neurological Exam Neurological exam: Present: CN II-XII intact, oriented X3, no focal deficits. Absent: pronater drift, facial droop, speech deficit - Skin Skin exam: Present: dry, intact Internal Medicine: Result - Labs CBC & Chem 7: 06/01/18 05:40 06/01/18 05:40 Consult Discharge Plan - Plan [facility]errals: [facility] [Primary Care Provider] -
[2018-06-05] MEDS: Gabapentin 300 MG CAPSULE PO SCH (20:12)
[2018-06-06] MEDS: *HR* Heparin 5,000 UNIT/ML VIAL SQ SCH ×2 (05:02→17:45)
[2018-06-06] MEDS: Insulin LISPRO 300 UNITS/3 ML VIAL SQ SCH ×4 (08:51→20:55)
[2018-06-06] MEDS: Sennosides 8.6 MG TABLET PO SCH (08:53)
[2018-06-06] MEDS: *HR* GlipiZIDE 5 MG TABLET PO SCH (08:53)
[2018-06-06] MEDS: Aspirin 81 MG TAB.CHEW PO SCH (08:54)
[2018-06-06] MEDS: Nicotine 21 MG PATCH.TD24 TD SCH (08:54)
[2018-06-06] MEDS: *HR* Metformin 500 MG TABLET PO SCH ×2 (08:54→17:34)
--- NOTE | 2018-06-06 16:33 | Internal Med Progress Note ---
Date of Encounter: 06/06/18 Time of Encounter: 14:30 - Subjective Interval history: Assessment and Plan (1) CVA (cerebral vascular accident) Current visit: Yes Status: Acute Pt had acute onset stroke 05/24/18 while at home. IT was Cerebellar stroke. (left cerebellar artery inf). He was flown to [facility] and given TPA. He had good response. He had minor speech deficit. He is weak and deconditioned. HE has poor balance. He is currently needing a walker. Speech improved. HE has previously been active and works on [employer]. He was in the [employer] and worked on [employer]. was exposed to agent orange. He reports hx broken nose and snoring. He will need sleep study as out pt to R/O JESSICA as stroke risk. Discussed with pt. He is aware. PT, OT and ST to eval and treat. Will follow progress. Follow up with neurologist as scheduled. HE has primary care at the [facility]. Continue simvastatin 20 mg and ASA 325 mg. MRI showed a left cerebellar stroke with medulla extension. BP has been running systolic 110 or 120 on losartin 25 mg will check TsH ( 2) Tobacco Abuse Pt has been a [facility] smoker. He is aware he needs to stop. He has nicotine patch and says some help. Would like to continue this patch. Still has cravings. Will start low dose zoloft to assist. 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 His sugars at times run slight low. Continue to monitor for optimum dose glipizide. . Continue to monitor fingerstick blood sugar. Last hemoglobin A-1 C7 .8. Na was 133 will recheck comp met profile Qualifiers: Diabetes mellitus chcf insulin use: without terminal supervisor use Diabetes mellitus complication status: without complication Qualified Code(s): E11.9 - Type 2 diabetes mellitus without complications (4) Hyperlipemia Current visit: Yes Status: Acute Continue simvastatin. Qualifiers: Hyperlipidemia type: unspecified Qualified Code(s): E78.5 - Hyperlipidemia, unspecified Interval History Mr. Andrew is a 72 year old male admitted to rehab status post CVA. . He was admitted to [facility] with an MRI showing a left cerebellar stroke with left medulla extension. He does have hx prostate cancer but says was treated 3 yr ago. Patient denies any new neurological symptoms, denies change in vision, denies fever, chills, nausea vomiting or diarrhea. Denies shortness of breath or chest pain. Pt has been doing well with PT and says speech told him he improved. He is still having diff balance and needing walker, He is not sad but is somewhat 'blah' and irritable Examination: General: Thin WM In no apparent distress, alert and oriented 3. Eyes: Extraocular muscles are intact, pupils equal round and reactive to light and accommodation. Nose: Patent without lesion noted. septal deviation Neck There is no thyromegaly or adenopathy and carotids are 2+ without bruit heard. Respiratory: No use of accessory muscles. Lungs are clear throughout. Normal airflow. Cardiovascular: Regular rate and rhythm without murmur appreciated. Abdomen: Bowel sounds are normal. No hepatosplenomegaly masses or tenderness. Extremities: No cyanosis clubbing or edema. Neurological: A and O 3. Cranial nerves II through XII are intact. No focal deficits and no abnormal movements or postures. Skin: thin skin multiple ice pick type scars to forearms and back hands - Constitutional Vitals: Temp Pulse Resp BP Pulse Ox 97.6 F 67 15 115/67 97 06/06/18 07:34 06/06/18 07:34 06/06/18 07:34 06/06/18 07:34 06/06/18 07:34 General appearance: Present: cooperative, A&O X 3, pleasant, no acute distress, answers questions appropriately Internal Medicine: Result - Labs CBC & Chem 7: 06/01/18 05:40 06/01/18 05:40 Consult Discharge Plan - Plan [facility]errals: [facility] [Primary Care Provider] -
[2018-06-06] MEDS ORDERED: Sennosides 8.6 MG TABLET PO PRN (17:40)
[2018-06-06] MEDS: Gabapentin 300 MG CAPSULE PO SCH (20:28)
[2018-06-07 05:32] LABS: Alanine Aminotransferase 20 Units/L (7-52); Albumin/Globulin Ratio 1.7 (1.1-2.2); Alkaline Phosphatase 58 Units/L (34-104); Aspartate Amino Transferase 16 Units/L (13-39); BUN/Creatinine Ratio 24 (6-26); Bilirubin,Total 0.6 mg/dL (0.3-1.0); Blood Urea Nitrogen 17 mg/dL (8-23); Calcium 9.1 mg/dL (8.6-10.3); Carbon Dioxide 29 mEq/L (23-29); Chloride 97 mEq/L (98-107); Globulin 2.4 g/dL (2.4-3.5); Glucose 113 mg/dL (70-105); Osmolality,Calculated 276 (280-300); Sodium 132 mEq/L (136-145); Total Protein 6.4 g/dL (6.4-8.9); eGFR For Non-African Americans > 60 (> 60)
[2018-06-07 05:45] LABS: Thyroid Stimulating Hormone 5.051 mcIU/mL (0.340-5.600)
[2018-06-07] MEDS: *HR* Heparin 5,000 UNIT/ML VIAL SQ SCH ×2 (06:32→18:19)
[2018-06-07] MEDS: Nicotine 21 MG PATCH.TD24 TD SCH (09:14)
[2018-06-07] MEDS: Insulin LISPRO 300 UNITS/3 ML VIAL SQ SCH ×4 (09:15→20:32)
[2018-06-07] MEDS: *HR* Metformin 500 MG TABLET PO SCH ×2 (09:15→18:19)
[2018-06-07] MEDS: Aspirin 325 MG TABLET PO SCH (09:15)
[2018-06-07] MEDS: *HR* GlipiZIDE 5 MG TABLET PO SCH (09:15)
[2018-06-07 11:10] LABS: % Iron Saturation 31 % (20-55); Iron 120 mcg/dL (65-175); Transferrin 281 mg/dL (203-362)
--- NOTE | 2018-06-07 12:26 | Internal Med Progress Note ---
Date of Encounter: 06/07/18 Time of Encounter: 11:20 - Subjective Interval history: Assessment and Plan (1) CVA (cerebral vascular accident) Current visit: Yes Status: Acute Pt had acute onset stroke 05/24/18 while at home. IT was Cerebellar stroke. (left cerebellar artery inf). He was flown to [facility] and given TPA. He had good response. He had minor speech deficit. He is weak and deconditioned. HE has poor balance. He is currently needing a walker. Speech improved. HE has previously been active and works on [employer]. He was in the [employer] and worked on [employer]. was exposed to agent orange. He reports hx broken nose and snoring. He will need sleep study as out pt to R/O JESSICA as stroke risk. Discussed with pt. He is aware. PT, OT and ST to eval and treat. Will follow progress. Follow up with neurologist as scheduled. HE has primary care at the [facility]. Continue simvastatin 20 mg and ASA 325 mg. MRI showed a left cerebellar stroke with medulla extension. BP has been running systolic 110 or 120 on losartin 25 mg will check TsH ( 2) Tobacco Abuse Pt has been a care home smoker. He is aware he needs to stop. He has nicotine patch and says some help. Would like to continue this patch. Still has cravings. Will start low dose zoloft to assist. 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 His sugars at times run slight low. Continue to monitor for optimum dose glipizide. . Continue to monitor fingerstick blood sugar. Last hemoglobin A-1 C7 .8. Na was 133 will recheck comp met profile Qualifiers: Diabetes mellitus care home insulin use: without meterman use Diabetes mellitus complication status: without complication Qualified Code(s): E11.9 - Type 2 diabetes mellitus without complications (4) Hyperlipemia Current visit: Yes Status: Acute Continue simvastatin. Qualifiers: Hyperlipidemia type: unspecified Qualified Code(s): E78.5 - Hyperlipidemia, unspecified Interval History Mr. Andrew is a 72 year old male admitted to rehab status post CVA. . He was admitted to [facility] with an MRI showing a left cerebellar stroke with left medulla extension. He does have hx prostate cancer but says was treated 3 yr ago. Patient denies any new neurological symptoms, denies change in vision, denies fever, chills, nausea vomiting or diarrhea. Denies shortness of breath or chest pain. Pt has been doing well with PT and says speech told him he improved. He is still having diff balance spencer to left and needing walker, He is not sad but is somewhat 'blah' and irritable Examination: General: Thin WM In no apparent distress, alert and oriented 3. Eyes: Extraocular muscles are intact, pupils equal round and reactive to light and accommodation. Nose: Patent without lesion noted. septal deviation Neck There is no thyromegaly or adenopathy and carotids are 2+ without bruit heard. Respiratory: No use of accessory muscles. Lungs are clear throughout. Normal airflow. Cardiovascular: Regular rate and rhythm without murmur appreciated. Abdomen: Bowel sounds are normal. No hepatosplenomegaly masses or tenderness. Extremities: No cyanosis clubbing or edema. Neurological: A and O 3. Cranial nerves II through XII are intact. No focal deficits and no abnormal movements or postures. He still has left sided disdiadokinesis moderate He is R handed Skin: thin skin multiple ice pick type scars to forearms and back hands - Constitutional Vitals: Temp Pulse Resp BP Pulse Ox 97.7 F 56 16 126/68 95 06/07/18 07:19 06/07/18 07:19 06/07/18 07:19 06/07/18 07:19 06/07/18 07:19 General appearance: Present: cooperative, A&O X 3, pleasant, no acute distress, answers questions appropriately Internal Medicine: Result - Labs CBC & Chem 7: 06/01/18 05:40 06/07/18 04:45 Labs: BMP 06/07/18 04:45 Sodium 132 L Potassium 4.0 Chloride 97 L Carbon Dioxide 29 BUN 17 Creatinine 0.71 Glucose 113 H Calcium 9.1 Liver Function 06/07/18 Range/Units 04:45 Total Bilirubin 0.6 (0.3-1.0) mg/dL AST 16 (13-39) Units/L ALT 20 (7-52) Units/L Alkaline Phosphatase 58 (34-104) Units/L Albumin 4.0 (3.5-5.7) g/dL Consult Discharge Plan - Plan [facility]errals: [facility] [Primary Care Provider] -
[2018-06-07] MEDS: Gabapentin 300 MG CAPSULE PO SCH (20:32)
[2018-06-08] MEDS: *HR* Heparin 5,000 UNIT/ML VIAL SQ SCH ×2 (05:36→17:08)
[2018-06-08] MEDS: Aspirin 325 MG TABLET PO SCH (08:02)
[2018-06-08] MEDS: *HR* Metformin 500 MG TABLET PO SCH ×2 (08:02→17:09)
[2018-06-08] MEDS: Insulin LISPRO 300 UNITS/3 ML VIAL SQ SCH ×4 (08:02→20:13)
[2018-06-08] MEDS: Nicotine 21 MG PATCH.TD24 TD SCH ×2 (08:02→08:14)
[2018-06-08] MEDS: Cyanocobalamin (B-12) 1,000 MCG TABLET PO SCH (08:02)
[2018-06-08] MEDS: *HR* GlipiZIDE 5 MG TABLET PO SCH (08:02)
--- NOTE | 2018-06-08 13:12 | Internal Med Progress Note ---
Addendum entered and electronically signed by Brendan Willoughby MD 06/08/18 15:15: I have personally performed a face to face evaluation on this patient. I have r eviewed and agree with the care plan. History and Exam by me shows: Patient seems not to want to be bothered. He is without complaint. He is pleased to be going home this week but wishes that it was sooner. He denies acute issues. He has been moving his bowels well. Discussed care with other providers and/or nursing. Patient has no complaint of chest discomfort, dyspnea, orthopnea, palpitations, nausea or vomiting, constipation or diarrhea, other changes in bowel habits, difficulty with urination, rash or itching, or other new complaints, except as mentioned above. Review of systems is otherwise negative. Examination: (Except as mentioned above): General: In no apparent distress. Alert and oriented 3. Nondiaphoretic. Head: Atraumatic and normocephalic. Respiratory: No use of accessory muscles. Lungs are clear throughout. Normal airflow. Cardiovascular: Regular rate and rhythm without murmur appreciated. Abdomen: Bowel sounds are normal. No hepatosplenomegaly mass or tenderness appreciated. Extremities: No cyanosis clubbing or edema. Skin: Warm and non-diaphoretic with no new lesions noted. Original Note: Date of Encounter: 06/08/18 Time of Encounter: 13:05 - Assessment and plan (1) CVA (cerebral vascular accident) Current Visit: Yes Status: Inactive Assessment and plan: Continue PT, OT and ST. Will monitor for improvement. No new neurological deficits. Follow up with neurologist as scheduled. 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 Monitor fingerstick blood sugar. Qualifiers: Diabetes mellitus intermediate card tender insulin use: without intermediate card tender use Diabetes mellitus complication status: without complication Qualified Code(s): E11.9 - Type 2 diabetes mellitus without complications (3) Hyperlipemia Current Visit: Yes Status: Acute Assessment and plan: Continue simvastatin. Qualifiers: Hyperlipidemia type: unspecified Qualified Code(s): E78.5 - Hyperlipidemia, unspecified - Time Spent With Patient less than 15 minutes - Subjective Interval history: Patient participating well with therapy. Ambulating with Walker with SBA to transfer. States bowels are moving as normal. Maintaining appetite and hydration. Denies any new neurological deficits. Continues to lean to the left. - Constitutional Vitals: Temp Pulse Resp BP Pulse Ox 98.4 F 63 15 98/64 97 06/08/18 07:09 06/08/18 07:09 06/08/18 07:09 06/08/18 07:09 06/08/18 07:09 General appearance: Present: cooperative, A&O X 3, pleasant, no acute distress, answers questions appropriately - Head Head exam: Present: atraumatic, normocephalic - Eye Eye exam: Present: PERRL, conjuntiva pink, sclera anicteric Pupils: Present: PERRL - Neck Neck exam general surgery: Present: supple, trachea midline. Absent: lymphadenopathy - Respiratory Respiratory exam: Present: CTAB. Absent: accessory muscle use, rales, rhonchi, wheezes - Cardiovascular Cardiovascular exam: Present: RRR, +S1, +S2. Absent: diastolic murmur, gallop, rubs, systolic murmur - GI/Abdominal GI/Abdominal exam: Present: normal bowel sounds, soft, no peritoneal signs. Absent: distended, tenderness - Extremities Exam Extremities exam: Present: warm, radial pulses palpable and symmetrical. Absent: calf tenderness, cyanotic, pedal edema - Neurological Exam Neurological exam: Present: CN II-XII intact, oriented X3, no focal deficits. Absent: pronater drift, facial droop, speech deficit - Skin Skin exam: Present: dry, intact Internal Medicine: Result - Labs CBC & Chem 7: 06/01/18 05:40 06/07/18 04:45 Consult Discharge Plan - Plan [facility]: [facility] [Primary Care Provider] -
[2018-06-08] MEDS: Gabapentin 300 MG CAPSULE PO SCH (20:13)
[2018-06-09] MEDS: *HR* Heparin 5,000 UNIT/ML VIAL SQ SCH ×2 (06:30→17:03)
[2018-06-09] MEDS: Cyanocobalamin (B-12) 1,000 MCG TABLET PO SCH (08:06)
[2018-06-09] MEDS: Aspirin 325 MG TABLET PO SCH (08:06)
[2018-06-09] MEDS: *HR* GlipiZIDE 5 MG TABLET PO SCH (08:06)
[2018-06-09] MEDS: Nicotine 21 MG PATCH.TD24 TD SCH (08:06)
[2018-06-09] MEDS: *HR* Metformin 500 MG TABLET PO SCH ×2 (08:06→17:03)
[2018-06-09] MEDS: Insulin LISPRO 300 UNITS/3 ML VIAL SQ SCH (08:07)
--- NOTE | 2018-06-09 11:47 | Internal Med Progress Note ---
Date of Encounter: 06/09/18 Time of Encounter: 11:45 - Assessment and plan (1) CVA (cerebral vascular accident) Current Visit: Yes Status: Acute Assessment and plan: Patient appears relaxed. No acute neurological deficits noted on exam. No focal deficits noted on exam. Patient participating in physical therapy and progressing well. We will continue with current plan of care. Patient being prepared for possible discharge in the morning. Patient's medications were discussed between patient and with all questions answered and both stating understanding Qualifiers: CVA mechanism: unspecified Qualified Code(s): I63.9 - Cerebral infarction, unspecified (2) Diabetes type 2, controlled Current Visit: Yes Status: Acute Assessment and plan: No acute issues. Patient's glucose been well-controlled with most readings less than 170. We will discontinue scheduled insulin to maintain patient on current oral medications Qualifiers: Diabetes mellitus snf insulin use: without long term care social worker use Diabetes mellitus complication status: without complication Qualified Code(s): E11.9 - Type 2 diabetes mellitus without complications - Time Spent With Patient less than 15 minutes - Subjective Interval history: Patient appears relaxed and currently denies any discomforts or dyspnea. Denies any acute neurological deficits and states that he feels that his strength has improved to his left ext. - Constitutional Vitals: Temp Pulse Resp BP Pulse Ox 97.4 F L 59 18 123/70 96 06/09/18 06:00 06/09/18 06:00 06/09/18 06:00 06/09/18 06:00 06/09/18 06:00 General appearance: Present: cooperative, A&O X 3, pleasant, no acute distress, answers questions appropriately - Head Head exam: Present: atraumatic, normocephalic - Eye Eye exam: Present: PERRL, conjuntiva pink, sclera anicteric Pupils: Present: PERRL - Neck Neck exam general surgery: Present: supple, trachea midline. Absent: lym phadenopathy - Respiratory Respiratory exam: Present: CTAB. Absent: accessory muscle use, rales, rhonchi, wheezes - Cardiovascular Cardiovascular exam: Present: RRR, +S1, +S2. Absent: diastolic murmur, gallop, rubs, systolic murmur - GI/Abdominal GI/Abdominal exam: Present: normal bowel sounds, soft, no peritoneal signs. Absent: distended, tenderness - Extremities Exam Extremities exam: Present: warm, radial pulses palpable and symmetrical. Absent: calf tenderness, cyanotic, pedal edema - Neurological Exam Neurological exam: Present: CN II-XII intact, oriented X3, no focal deficits. Absent: pronater drift, facial droop, speech deficit - Skin Skin exam: Present: dry, intact Internal Medicine: Result - Labs CBC & Chem 7: 06/01/18 05:40 06/07/18 04:45 Consult Discharge Plan - Plan [facility]errals: [facility] [Primary Care Provider] -
[2018-06-09] MEDS: Gabapentin 300 MG CAPSULE PO SCH (20:17)
[2018-06-10] MEDS: *HR* Heparin 5,000 UNIT/ML VIAL SQ SCH ×2 (06:05→17:20)
[2018-06-10] MEDS: *HR* GlipiZIDE 5 MG TABLET PO SCH (08:21)
[2018-06-10] MEDS: Aspirin 325 MG TABLET PO SCH (08:21)
[2018-06-10] MEDS: Cyanocobalamin (B-12) 1,000 MCG TABLET PO SCH (08:22)
[2018-06-10] MEDS: *HR* Metformin 500 MG TABLET PO SCH ×2 (08:22→17:19)
[2018-06-10] MEDS: Nicotine 21 MG PATCH.TD24 TD SCH (08:22)
--- NOTE | 2018-06-10 14:22 | Internal Med Progress Note ---
Addendum entered and electronically signed by Karin Steele 06/11/18 14:51: I have personally performed a face to face evaluation on this patient. I have re viewed and agree with the care plan. Pt has been doing very well. His mood is good he is doing well not smoking. He states he wants to use Nicotine patches at discharge and remain smoke free. Original Note: Date of Encounter: 06/10/18 Time of Encounter: 14:18 - Assessment and plan (1) CVA (cerebral vascular accident) Current Visit: Yes Status: Inactive Assessment and plan: Continue PT, OT and ST. Will monitor for improvement. No new neurological deficits. Follow up with neurologist as scheduled. 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 Monitor fingerstick blood sugar. Qualifiers: Diabetes mellitus ad terminal makeup operator insulin use: without custodial use Diabetes mellitus complication status: without complication Qualified Code(s): E11.9 - Type 2 diabetes mellitus without complications (3) Hyperlipemia Current Visit: Yes Status: Acute Assessment and plan: Continue simvastatin. Qualifiers: Hyperlipidemia type: unspecified Qualified Code(s): E78.5 - Hyperlipidemia, unspecified - Time Spent With Patient less than 15 minutes - Subjective Interval history: Patient participating well with therapy. Ambulating with Walker with SBA to transfer. States bowels are moving as normal. Maintaining appetite and hydration. Denies any new neurological deficits. Continues to lean to the left. Planning for discharge to home on . - Constitutional Vitals: Temp Pulse Resp BP Pulse Ox 97.5 F L 56 16 117/71 97 06/10/18 07:00 06/10/18 07:00 06/10/18 07:00 06/10/18 07:00 06/10/18 07:00 General appearance: Present: cooperative, A&O X 3, pleasant, no acute distress, answers questions appropriately - Head Head exam: Present: atraumatic, normocephalic - Eye Eye exam: Present: PERRL, conjuntiva pink, sclera anicteric Pupils: Present: PERRL - Neck Neck exam general surgery: Present: supple, trachea midline. Absent: lymphadenopathy - Respiratory Respiratory exam: Present: CTAB. Absent: accessory muscle use, rales, rhonchi, wheezes - Cardiovascular Cardiovascular exam: Present: RRR, +S1, +S2. Absent: diastolic murmur, gallop, rubs, systolic murmur - GI/Abdominal GI/Abdominal exam: Present: normal bowel sounds, soft, no peritoneal signs. Absent: distended, tenderness - Extremities Exam Extremities exam: Present: warm, radial pulses palpable and symmetrical. Absent: calf tenderness, cyanotic, pedal edema - Neurological Exam Neurological exam: Present: CN II-XII intact, oriented X3, no focal deficits. Absent: pronater drift, facial droop, speech deficit - Skin Skin exam: Present: dry, intact Internal Medicine: Result - Labs CBC & Chem 7: 06/01/18 05:40 06/07/18 04:45 Consult Discharge Plan - Plan [facility]errals: [facility] [Primary Care Provider] -
[2018-06-10] MEDS: Gabapentin 300 MG CAPSULE PO SCH (19:40)
[2018-06-11] MEDS: *HR* Heparin 5,000 UNIT/ML VIAL SQ SCH ×2 (05:05→16:55)
[2018-06-11] MEDS: Cyanocobalamin (B-12) 1,000 MCG TABLET PO SCH (08:21)
[2018-06-11] MEDS: *HR* GlipiZIDE 5 MG TABLET PO SCH (08:21)
[2018-06-11] MEDS: Aspirin 325 MG TABLET PO SCH (08:21)
[2018-06-11] MEDS: *HR* Metformin 500 MG TABLET PO SCH ×2 (08:21→16:55)
[2018-06-11] MEDS: Nicotine 21 MG PATCH.TD24 TD SCH (08:22)
--- NOTE | 2018-06-11 10:57 | Internal Med Progress Note ---
Addendum entered and electronically signed by Karin Steele 06/11/18 14:49: I have personally performed a face to face evaluation on this patient. I have reviewed and agree with the care plan. Pt has been doing very well. His mood is good he is doing well not smoking. He states he wants to use Nicotine patches at discharge and remain smoke free. Original Note: Date of Encounter: 06/11/18 Time of Encounter: 10:56 - Assessment and plan (1) CVA (cerebral vascular accident) Current Visit: Yes Status: Acute Assessment and plan: Patient appears relaxed. No acute neurological deficits noted on exam. No focal deficits noted on exam. Patient participating in physical therapy and progressing well. We will continue with current plan of care. Qualifiers: CVA mechanism: unspecified Qualified Code(s): I63.9 - Cerebral infarction, unspecified (2) Diabetes type 2, controlled Current Visit: Yes Status: Acute Assessment and plan: No acute issues. Patient's glucose been well-controlled with most readings less than 150. We will discontinue scheduled insulin to maintain patient on current oral medications Qualifiers: Diabetes mellitus terminal block assembler insulin use: without custodial use Diabetes mellitus complication status: without complication Qualified Code(s): E11.9 - Type 2 diabetes mellitus without complications - Time Spent With Patient less than 15 minutes - Subjective Interval history: Patient appears relaxed and currently denies any discomforts or dyspnea. Denies any acute neurological deficits and states that he feels that his strength has improved to his left ext. - Constitutional Vitals: Temp Pulse Resp BP Pulse Ox 98.1 F 61 18 117/72 95 06/11/18 07:22 06/11/18 07:22 06/11/18 07:22 06/11/18 07:22 06/11/18 07:22 General appearance: Present: cooperative, A&O X 3, pleasant, no acute distress, answers questions appropriately - Head Head exam: Present: atraumatic, normocephalic - Eye Eye exam: Present: PERRL, conjuntiva pink, sclera anicteric Pupils: Present: PERRL - Neck Neck exam general surgery: Present: supple, trachea midline. Absent: lymphadenopathy - Respiratory Respiratory exam: Present: CTAB. Absent: accessory muscle use, rales, rhonchi, wheezes - Cardiovascular Cardiovascular exam: Present: RRR, +S1, +S2. Absent: diastolic murmur, gallop, rubs, systolic murmur - GI/Abdominal GI/Abdominal exam: Present: normal bowel sounds, soft, no peritoneal signs. Absent: distended, tenderness - Extremities Exam Extremities exam: Present: warm, radial pulses palpable and symmetrical. Absent: calf tenderness, cyanotic, pedal edema - Neurological Exam Neurological exam: Present: CN II-XII intact, oriented X3, no focal deficits. Absent: pronater drift, facial droop, speech deficit - Skin Skin exam: Present: dry, intact Internal Medicine: Result - Labs CBC & Chem 7: 06/01/18 05:40 06/07/18 04:45 Consult Discharge Plan - Plan [facility]: [facility] [Primary Care Provider] -
[2018-06-11] MEDS: Gabapentin 300 MG CAPSULE PO SCH (20:09)
[2018-06-12] MEDS: *HR* Heparin 5,000 UNIT/ML VIAL SQ SCH (05:03)
[2018-06-12 07:25] VITALS: BP 122/74
[2018-06-12] MEDS: Aspirin 325 MG TABLET PO SCH (08:10)
[2018-06-12] MEDS: *HR* GlipiZIDE 5 MG TABLET PO SCH (08:10)
[2018-06-12] MEDS: *HR* Metformin 500 MG TABLET PO SCH (08:10)
[2018-06-12] MEDS: Cyanocobalamin (B-12) 1,000 MCG TABLET PO SCH (08:10)
[2018-06-12] MEDS: Nicotine 21 MG PATCH.TD24 TD SCH (08:10)
--- NOTE | 2018-06-12 11:44 | Discharge Summary ---
Addendum entered and electronically signed by Karin Steele 06/12/18 13:10: I have personally performed a face to face evaluation on this patient. I have reviewed and agree with the care plan. Original Note: Date of Encounter: 06/12/18 Time of Encounter: 11:41 - Discharge Diagnosis (1) CVA (cerebral vascular accident) Priority: Primary Status: Acute Comments: Patient had an acute CVA on 05/24/18 and was transferred to [facility] for treatment. Patient showed minimal residual deficits following the CVA. Patient continues to have some difficulty with focusing of left eye has a residual. Otherwise no motor or sensory deficits noted. Patient dissipated and physical therapy and progressed well during his stay at this facility. Agents neurological exam remains stable. Patient will be discharged to home and will continue his physical therapy through outpatient services. Patient is recommended to continue his follow-up with neurology at [facility] and with his PCP. Qualifiers: CVA mechanism: unspecified Qualified Code(s): I63.9 - Cerebral infarction, unspecified (2) Diabetes type 2, controlled Priority: Secondary Status: Acute Comments: Patients glucose has been well controlled on fingersticks with most readings less than 150. We will continue with current home medications and patient is to follow-up with PCP in one week Qualifiers: Diabetes mellitus termite exterminator helper insulin use: without senior care use Diabetes mellitus complication status: without complication Qualified Code(s): E11.9 - Type 2 diabetes mellitus without complications Hospital course: Mr. Andrew is a 72 year old male who had an acute CVA on 05/24/18 and was transferred to [facility] for treatment. Patient showed minimal residual deficits following the CVA. Patient continues to have some difficulty with focusing of left eye has a residual. Otherwise no motor or sen brittany deficits noted. Patient participated in physical therapy and progressed well during his stay at this facility. Patient will continue his physical therapy through outpatient services here at [facility]. Agents neurological exam remains stable. Patient's glucose remained well controlled during his stay at this facility with most readings less than 150. Patient is recommended to continue his follow-up with neurology at [facility] and with his PCP. Discharge discussed with: patient Time spent discussing smoking cessation with patient: 3 to 10 minutes - Time Spent with Patient Total time spent providing and/or coordinating discharge services: Less than 30 minutes - Discharge Medications Prescriptions: No Action glipiZIDE [Glucotrol] 5 mg PO 0800 metFORMIN [Glucophage] 850 mg PO TID Simvastatin [Zocor] 20 mg PO DAILY Home Medications: glipiZIDE [Glucotrol] 5 mg PO 0800 07/04/16 [History] metFORMIN [Glucophage] 850 mg PO TID 07/04/16 [History] Simvastatin [Zocor] 20 mg PO DAILY 07/17/17 [History] Allergies/Adverse Reactions: Allergy/AdvReac Type Severity Reaction Status Date / Time No Known Allergies Allergy Verified 07/17/17 14:58 Date of admission: 05/28/18 23:40 [facility] care physician[facility] Consults: 05/29/18 01:46 Consult to Occupational Therapy [CONS] Routine Comment: Evaluate, develop and implement POC Reason for Consult: Eval and Treat Does patient have active BEDREST order?: No Is patient medically & hemodynamically stable?: Yes Patient assessed for mobility or mobilized this visit?: Yes Consult to Physical Therapy [CONS] Routine Comment: Evaluate, develop and implement POC Reason for Consult: Eval and Treat Does patient have active BEDREST order?: No Is patient medically & hemodynamically stable?: Yes Patient assessed for mobility or mobilized this visit?: Yes Consult to Recreational Therapy [CONS] Routine Comment: Evaluate, develop and implement POC Consult to Physical Security Specialist [CONS] Routine Reason for SW Consult: Discharge Planning Consult to Speech Therapy [CONS] Routine Comment: Evaluate, develop and implement POC Reason for Consult: speech impairment Call Completed: Yes 06/01/18 12:45 Consult to Psychiatry [CONS] Routine Consulting Provider: Mireya Bennett Reason consult: Other Discharging clinician: Karin Steele - Constitutional Vitals: Temp Pulse Resp BP Pulse Ox 97.8 F 57 16 122/74 96 06/12/18 07:00 06/12/18 07:00 06/12/18 07:00 06/12/18 07:00 06/12/18 07:00 General appearance: Present: cooperative, A&O X 3, pleasant, no acute distress, answers questions appropriately - Head Head exam: Present: atraumatic, normocephalic - Eye Eye exam: Present: PERRL, conjuntiva pink, sclera anicteric Pupils: Present: PERRL - Neck Neck exam general surgery: Present: supple, trachea midline. Absent: lymphadenopathy - Respiratory Respiratory exam: Present: CTAB. Absent: accessory muscle use, rales, rhonchi, wheezes - Cardiovascular Cardiovascular exam: Present: RRR, +S1, +S2. Absent: diastolic murmur, gallop, rubs, systolic murmur - GI/Abdominal GI/Abdominal exam: Present: normal bowel sounds, soft, no peritoneal signs. Absent: distended, tenderness - Extremities Exam Extremities exam: Present: warm, radial pulses palpable and symmetrical. Absent: calf tenderness, cyanotic, pedal edema - Neurological Exam Neurological exam: Present: CN II-XII intact, oriented X3, no focal deficits. Absent: pronater drift, facial droop, speech deficit - Skin Skin exam: Present: dry, intact - Patient Status Disposition: Home, Self-Care Condition: Good Functional capacity at discharge: uses cane/walker Overall status at discharge: patient is progressing back to baseline - Discharge Instructions Follow Up With: [facility],PCP [Primary Care Provider] - 06/18/18 10:15 am (F/u with [facility]. Spoke with Meredith in this office who stated she would make note of patient's need for cardiac and neuro f/u with [facility] and patient's primary physcian would arrange follow-up services at upcoming appointment. ) - Diet and Activity Activity: as per physical therapy, increase activity as tolerated Diet: low fat, low cholesterol, low salt diet
== END 2018-06-12 15:05 | disposition home or self-care (01) | DRG 57 ==
LOC: INPGRE 23:40